=== PATIENT | female | born 1955 | race Caucasian/White ===

== ENCOUNTER → 2023-03-16 | Outpatient (CLI) | payer MEDICARE, OTHER ==
--- NOTE | 2023-03-16 16:33 | BD ---
EXAMINATION TYPE: Axial Bone Density DATE OF EXAM: 03/16/2023 CLINICAL HISTORY: 67 years old Female. ICD-10 CODE: Z13.820 SCREENING FOR OSTEOPOROSIS Height: 5 ft 3 in Weight: 199 FRAX RISK QUESTIONS: Alcohol (3 or more units per day): no Family History (Parent hip fracture): no Glucocorticoids (More than 3mos): unsure (Ex: prednisone, prednisolone, methylprednisolone, dexamethasone, and hydrocortisone). History of Fracture in Adulthood: yes Secondary Osteoporosis: 1. Type 1 Diabetes: no 2. Hyperthyroidism: no 3. Menopause before 45: yes 4. Malnutrition: no 5. Chronic liver disease: no Rheumatoid Arthritis: no Current Tobacco Use: former RISK FACTORS HISTORY OF: History of Wrist Fracture: rt wrist When: 7-8 years ago Surgery to Spine/Hip(right/left)/Wrist (right/left): rt wrist When: 7-8 years Family History of Osteoporosis: no Active: no Diet low in dairy products/other sources of calcium: no Postmenopausal woman: yes Take estrogen and/or progesterone medications: none now Lost more than 2 inches in height since high school: yes Frequent falls: no Poor Health: fair Hyperparathyroidism: no Adrenal Insufficiency: no MEDICATIONS: Additional Medications: arthritis meds,, inhaler , albuterol, trelegy ellipta, montelukast, laratadi ne, metoprolol, alendronate sodium, Atorvastatin, Additional History: copd and emphysemas on o2 24 seven EXAM MEASUREMENTS: Bone mineral densitometry was performed using the [employer] System. Bone mineral density as measured about the Lumbar spine is: ----- L1-L4(G/cm2): 1.057 T Score Values are as follows: ----- L1: -1.3 ----- L2: -0.7 ----- L3: -0.4 ----- L4: -1.7 ----- L1-L4: -1.0 Z Score Values are as follows: ----- L1: -0.5 ----- L2: 0.1 ----- L3: 0.4 ----- L4: -0.9 ----- L1-L4: -0.2 baseline Bone mineral density about the R hip (g/cm2): 0.658 Bone mineral density about the L hip (g/cm2): 0.799 T Score values are as follows: -----R Neck: -2.7 -----L Neck: -1.7 -----R Total: -2.1 -----L Total: -0.9 Z Score values are as follows: -----R Neck: -1.7 -----L Neck: -0.7 -----R Total: -1.3 -----L Total: -0.2 baseline FRAX%s: The graph provided illustrates a 14.4% chance for a major osteoporotic fx and a 3.6 % chance for the hips probability for fx in 10 years time. IMPRESSION: Osteoporosis (T Score less than -2.5). There is increased fracture risk and therapy is usually indicated based on age. Re-Screen 1-2 years. NOTE: T-SCORE=SD OF THE YOUNG ADULT MEAN.
--- NOTE | 2023-03-17 17:24 | MM ---
Reason for Exam: Screening (asymptomatic). Last mammogram was performed 6 year(s) and 0 month(s) ago. Patient History: Menarche at age 13. First Full-Term at age 20. Hysterectomy at age 28. Postmenopausal. Estrogen, from age 28 until age 57. Risk Values: Brandy 5 year model risk: 1.5%. NCI Lifetime model risk: 5.2%. Prior Study Comparison: 01/31/2015 Bilateral Screening Mammogram, [facility]. 03/25/2017 Bilateral Screening Mammogram, [facility]. Tissue Density: There are scattered fibroglandular densities. Findings: Analyzed By CAD. Isodense to low density nodularity proximally 9:00 right breast has a reniform shape suggesting an intramammary lymph node. 6 month follow-up to reassess as priors are no longer available for comparison. No significant mass, suspicious microcalcification, or other discrete abnormality is seen. Overall Assessment: Probably benign, BI-RAD 3 Management: Diagnostic Mammogram of the right breast in 6 months. For suspected 9:00 intramammary lymph node. Patient should continue monthly self-breast exams. A clinical breast exam by your physician is recommended on an annual basis. This exam should not preclude additional follow-up of suspicious palpable abnormalities. Note on Brandy scores and lifetime risk: 1. A Brandy score greater than 3% is considered moderate risk. If this is the case, consider specialist referral to assess eligibility for a risk reducing agent. 2. If overall lifetime risk for the development of breast cancer is 20% or higher, the patient may qualify for future screening with alternating mammogram and breast MRI. Electronically signed and approved by: Amirah Lizarraga M.D. Radiologist
== END | disposition home or self-care (01) ==
LOC: RADMAMWWP 15:03
PROVIDERS: ATTEND Family Medicine
DX: Z12.31 Encounter for screening mammogram for malignant neoplasm of breast (principal); Z13.820 Encounter for screening for osteoporosis; M81.0 Age-related osteoporosis without current pathological fracture; M85.89 Other specified disorders of bone density and structure, multiple sites; Z78.0 Asymptomatic menopausal state
CPT/HCPCS: 77063; 77067; 77080

== ENCOUNTER 2023-09-10 09:11 | Day surgery (SDC) | payer MEDICARE, OTHER ==
--- NOTE | 2023-09-10 07:48 | P.GSHP ---
History of Present Illness H&P Date: 09/10/23 CHIEF COMPLAINT: Colon screen HISTORY OF PRESENT ILLNESS: The patient is a 67-year-old female who presents for colon screen. Lower endoscopy was offered for further evaluation and management. PAST MEDICAL HISTORY: Please see list. PAST SURGICAL HISTORY: Please see list. MEDICATIONS: Please see list. ALLERGIES: Please see list. SOCIAL HISTORY: No illicit drug use FAMILY HISTORY: No reports of Crohn disease or ulcerative colitis. REVIEW OF ORGAN SYSTEMS: CONSTITUTIONAL: No reports of fevers or chills. PHYSICAL EXAM: VITAL SIGNS: Stable GENERAL: Well-developed pleasant in no acute distress. HEENT: No scleral icterus. Extraocular movements grossly intact. Moist buccal mucosa. NECK: Supple without lymphadenopathy. CHEST: Unlabored respirations. Equal bilateral excursions. CARDIOVASCULAR: Regular rate and rhythm. Distal 2+ pulses. ABDOMEN: Soft, nontender, nondistended. MUSCULOSKELETAL: No clubbing, cyanosis, or edema. ASSESSMENT: 1. Colon screen. PLAN: 1. Recommend proceeding with a lower endoscopy Past Medical History Past Medical History: COPD, Hyperlipidemia, Hypertension, Liver Disease Additional Past Medical History / Comment(s): osteoperosis, fatty liver, one kidney smaller than other History of Any Multi-Drug Resistant Organisms: None Reported Past Surgical History: Appendectomy, Cholecystectomy, Hysterectomy, Joint Replacement, Orthopedic Surgery Additional Past Surgical History / Comment(s): 7 surgeries on rt knee 2 were replacements , rt wrtist fx repair, Past Anesthesia/Blood Transfusion Reactions: Previous Problems w/ Anesthesia Additional Past Anesthesia/Blood Transfusion Reaction / Comment(s): pt states she " on the table from anesthestic drops" has been told this med is not used anymore Smoking Status: Former smoker Medications and Allergies Home Medications Medication Instructions Recorded Confirmed Type Alendronate Sodium 70 mg PO FR 09/08/23 09/08/23 History Aspirin [Adult Low Dose Aspirin EC] 81 mg PO DAILY 09/08/23 09/08/23 History Atorvastatin [Lipitor] 80 mg PO HS 09/08/23 09/08/23 History Cetirizine HCl [Zyrtec] 10 mg PO DAILY 09/08/23 09/08/23 History Fluticasone/Umeclidin/Vilanter 1 dose INHALATION DIRECTED 09/08/23 09/08/23 History [Trelegy Ellipta 200-62.5-25] Metoprolol Tartrate .5 mg PO BID 09/08/23 09/08/23 History Montelukast [Singulair] 10 mg PO DAILY 09/08/23 09/08/23 History Multivitamins, Thera [Multivitamin 1 tab PO DAILY 09/08/23 09/08/23 History (formulary)]
[2023-09-10] MEDS ORDERED: LACTATED RINGERS 1,000 ML IV ONE ×2 (09:30)
[2023-09-10] MEDS ORDERED: LIDOCAINE 1% INJ 10MG/ML (20 ML MDV) ONE (10:00)
[2023-09-10] MEDS ORDERED: PROPOFOL 10 MG/ML 20 ML VIAL IV ONE (10:00)
[2023-09-10 10:13] VITALS: TEMP 97.5
[2023-09-10] MEDS ORDERED: LACTATED RINGERS 1,000 ML IV SCH (10:28)
--- NOTE | 2023-09-10 10:55 | P.PCN ---
Date of Procedure: 09/10/23 Description of Procedure: PREOPERATIVE DIAGNOSIS: Positive Cologuard Abnormal stool study Colonoscopy screening POSTOPERATIVE DIAGNOSIS: Tubular adenoma transverse colon Sigmoid diverticulosis Internal hemorrhoids, grade 2 OPERATION: Colonoscopy to the ileocecal valve and appendiceal orifice, cecum Colonoscopy with cold forceps biopsy SURGEON: Carrie Morales MD. ANESTHESIA: MAC. INDICATIONS: The patient is an 67-year-old male who presents after abnormal stool study. Benefits and risks were described and informed consent was obtained. DESCRIPTION OF PROCEDURE: The patient had undergone Sutab prep. The patient had been brought into the operating room and laid in the left lateral decubitus position. After adequate intravenous sedation, the rectum was examined with 2% lidocaine jelly. External hemorrhoids were encountered. The rectal tone was within normal limits. No lesions were palpated in the rectal vault. An Olympus colonoscope was advanced until the cecum, ileocecal valve and appendiceal orifice were clearly viewed. The prep was excellent. Sigmoid diverticulosis was encountered. Colonic polyps were found and removed. No evidence of focal colitis was found. Retroflexion of the scope demonstrated grade 2 internal hemorrhoids without active bleeding or inflammation. The colon was desufflated. The patient had tolerated the procedure well. Withdrawal time was over 6 minutes. FINDINGS: Aronchick preparation quality scale 1 (1-5) Internal hemorrhoids, grade 3 with recent inflammation and bleeding External hemorrhoids, grade 4. No arteriovenous malformations. Sigmoid diverticulosis Removal of 4 polyps: - Cold forceps biopsy at mid transverse colon 4, 3 to 6 mm adenomas No focal colitis. RECOMMENDATIONS: Given severity of tubular adenomas, recommend repeat colonoscopy 3 years, 2025 Plan - Discharge Summary Discharge Rx Participant: No New Discharge Prescriptions: Continue Metoprolol Tartrate 12.5 mg PO BID Atorvastatin [Lipitor] 80 mg PO HS Alendronate Sodium 70 mg PO FR Montelukast [Singulair] 10 mg PO DAILY Aspirin [Adult Low Dose Aspirin EC] 81 mg PO DAILY Cetirizine HCl [Zyrtec] 10 mg PO DAILY Multivitamins, Thera [Multivitamin (formulary)] 1 tab PO DAILY Fluticasone/Umeclidin/Vilanter [Trelegy Ellipta 200-62.5-25] 1 dose INHALATION DIRECTED Discharge Medication List Alendronate Sodium 70 mg PO FR 09/08/23 [History] Aspirin [Adult Low Dose Aspirin EC] 81 mg PO DAILY 09/08/23 [History] Atorvastatin [Lipitor] 80 mg PO HS 09/08/23 [History] Cetirizine HCl [Zyrtec] 10 mg PO DAILY 09/08/23 [History] Fluticasone/Umeclidin/Vilanter [Trelegy Ellipta 200-62.5-25] 1 dose INHALATION DIRECTED 09/08/23 [History] Metoprolol Tartrate 12.5 mg PO BID 09/08/23 [History] Montelukast [Singulair] 10 mg PO DAILY 09/08/23 [History] Multivitamins, Thera [Multivitamin (formulary)] 1 tab PO DAILY 09/08/23 [History] Follow up Appointment(s)/Referral(s): Carrie Morales MD [STAFF PHYSICIAN] - As Needed Patient Instructions/Handouts: *Surgery [facility] - (Anesthesia) Discharge Instructions Outpatient Surgery, Diverticulosis (GEN), Colorectal Polyps (GEN), Diverticulosis Diet (GEN) Activity/Diet/Wound Care/Special Instructions: Repeat colonoscopy 3 years, 2025 Discharge Disposition: HOME SELF-CARE
[2023-09-10 11:02] VITALS: BP 128/76; PULSE 51; RESP 20
== END 2023-09-10 11:25 | disposition home or self-care (01) ==
LOC: ORWHC2ENDO 09:11
PROVIDERS: ATTEND Surgery Plastic and Reconstructive Surgery
DX: Z12.11 Encounter for screening for malignant neoplasm of colon (principal); K57.30 Diverticulosis of large intestine without perforation or abscess without bleeding; K64.2 Third degree hemorrhoids; K64.4 Residual hemorrhoidal skin tags; D12.3 Benign neoplasm of transverse colon; E78.5 Hyperlipidemia, unspecified; I10 Essential (primary) hypertension; J44.9 Chronic obstructive pulmonary disease, unspecified; K76.0 Fatty (change of) liver, not elsewhere classified; Z79.82 Long term (current) use of aspirin; Z87.891 Personal history of nicotine dependence; Z90.49 Acquired absence of other specified parts of digestive tract; Z79.51 Long term (current) use of inhaled steroids; Z79.899 Other long term (current) drug therapy
CPT/HCPCS: 88305; 45380; J2001; J2704

== ENCOUNTER → 2023-09-10 | Outpatient (CLI) | payer MEDICARE, OTHER ==
--- NOTE | 2023-09-10 15:10 | MM ---
Reason for Exam: Follow-up at short interval from prior study. Last screening mammogram was performed 6 month(s) ago. Patient History: Menarche at age 13. First Full-Term at age 20. Left ovary removed at age 28. Right ovary removed at age 28. Hysterectomy at age 28. Postmenopausal. Estrogen, from age 28 until age 57. Risk Values: Brandy 5 year model risk: 1.5%. NCI Lifetime model risk: 5.2%. Prior Study Comparison: 01/31/2015 Bilateral Screening Mammogram, [facility]. 03/25/2017 Bilateral Screening Mammogram, [facility]. 03/16/2023 Bilateral MG 3D screening mammo w/cad, [facility]. Tissue Density: Right: The breast tissue is almost entirely fat. Findings: Analyzed By CAD. Persistent nodular density upper outer right breast ultrasound is recommended. Stable benign calcifications. Overall Assessment: Incomplete: need additional imaging evaluation, BI-RAD 0 Management: Diagnostic Breast Ultrasound of the right breast. . Results were given to the patient verbally at the time of exam. Patient should continue monthly self-breast exams. A clinical breast exam by your physician is recommended on an annual basis. This exam should not preclude additional follow-up of suspicious palpable abnormalities. Note on Brandy scores and lifetime risk: 1. A Brandy score greater than 3% is considered moderate risk. If this is the case, consider specialist referral to assess eligibility for a risk reducing agent. 2. If overall lifetime risk for the development of breast cancer is 20% or higher, the patient may qualify for future screening with alternating mammogram and breast MRI. Electronically signed and approved by: Dominik Perera M.D. Radiologis
--- NOTE | 2023-09-11 13:06 | USB ---
Reason for Exam: Additional evaluation requested from prior study. Patient History: Menarche at age 13. First Full-Term at age 20. Left ovary removed at age 28. Right ovary removed at age 28. Hysterectomy at age 28. Postmenopausal. Estrogen, from age 28 until age 57. Risk Values: Brandy 5 year model risk: 1.5%. NCI Lifetime model risk: 5.2%. Technique: Method: Targeted. Prior Study Comparison: 01/31/2015 Bilateral Screening Mammogram, [facility]. 03/25/2017 Bilateral Screening Mammogram, [facility]. 03/16/2023 Bilateral MG 3D screening mammo w/cad, [facility]. Findings: The upper outer quadrant of the right breast, the axilla of the right breast and the retroareolar of the right breast were scanned. 2 adjacent cysts are noted right 9:00 position 6 cm from the nipple measuring 8 mm and 3 mm respectively. Overall Assessment: Benign, BI-RAD 2 Management: Return to routine follow-up (next follow-up: 03/16/2024 for Screening Mammogram) A clinical breast exam by your physician is recommended on an annual basis and results should be correlated with mammographic findings. This exam should not preclude additional follow-up of suspicious palpable abnormalities. Results were given to the patient verbally at the time of exam. Electronically signed and approved by: Dominik Perera M.D. Radiologis
== END | disposition home or self-care (01) ==
LOC: RADMAMWWP 12:53
PROVIDERS: ATTEND Family Medicine
DX: R92.311 Mammographic fatty tissue density, right breast (principal); Z78.0 Asymptomatic menopausal state
CPT/HCPCS: 77065; 76642; G0279; 77061

== ENCOUNTER → 2023-11-18 | Outpatient (CLI) | payer MEDICARE, OTHER ==
--- NOTE | 2023-11-18 20:28 | US ---
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 FINDINGS: EXAM MEASUREMENTS: Liver Length: 18.6 cm Gallbladder: Surgically absent CBD: 0.8 cm Right Kidney: 5.7 x 3.2 x 3.9 cm COMPUTED TOMOGRAPHY TECHNICIAN NOTES: patient is on O2 and had to sit upright for exam Pancreas: not seen due to bowel gas Liver: difficult to penetrate, slightly enlarged Gallbladder: Surgically absent Evidence for sonographic Gilbert's sign: no CBD: Mildly dilated. 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 Mild hepatomegaly at 18.6 cm with moderate to severe hepatic steatosis. 2. Gallbladder surgically absent. 3. Mildly dilated bile duct at 8 mm may be due to chronic postcholecystectomy status. 4. Atrophic right kidney. 5. Incidental right pleural effusion.
== END | disposition home or self-care (01) ==
LOC: RADUSWWP 09:07
PROVIDERS: ATTEND Internal Medicine
DX: K83.8 Other specified diseases of biliary tract (principal); K76.0 Fatty (change of) liver, not elsewhere classified; N26.1 Atrophy of kidney (terminal); R16.0 Hepatomegaly, not elsewhere classified; Z90.49 Acquired absence of other specified parts of digestive tract
CPT/HCPCS: 76705

== ENCOUNTER → 2024-01-12 | Outpatient (CLI) | payer MEDICARE, OTHER ==
--- NOTE | 2024-01-12 14:11 | XR ---
EXAMINATION TYPE: XR shoulder complete BILAT DATE OF EXAM: 01/12/2024 COMPARISON: NONE HISTORY: Chronic pain TECHNIQUE: Three views of each shoulder are submitted. FINDINGS: Right shoulder: Mild AC joint arthropathy. Mild glenohumeral joint arthropathy. There is a area of so mewhat irregular density in the right upper lobe. Mineralization normal. No acute fracture or dislocation. Left shoulder: Mild AC joint arthropathy. Lateral humeral joint maintained. Underlying emphysematous changes in the lungs. No acute fracture or dislocation. IMPRESSION: 1. Mild bilateral AC joint arthropathy. No acute fracture. 2. Irregular density right upper lobe recommend follow-up chest x-ray.
== END | disposition home or self-care (01) ==
LOC: RADXRMAIN 13:22
PROVIDERS: ATTEND Internal Medicine
DX: M19.012 Primary osteoarthritis, left shoulder (principal); M19.011 Primary osteoarthritis, right shoulder; J98.4 Other disorders of lung

== ENCOUNTER 2024-08-15 10:27 | Emergency (ER) | payer MEDICARE, OTHER ==
--- NOTE | 2024-08-15 11:49 | ED ---
Extremity Problem HPI - General Source: patient, family, RN notes reviewed Mode of arrival: wheelchair Limitations: no limitations <Silvina Powers - Last Filed: 08/15/24 15:16> <Tu Sarabia - Last Filed: 08/15/24 16:58> - General Chief complaint: Extremity Problem,Nontraumatic Stated complaint: poss infection-knee Time Seen by Provider: 08/15/24 10:40 - History of Present Illness Initial comments: This is a 68-year-old female with a history of gout and COPD on oxygen presenting to the emergency department with referral from her primary care provider with concern for right knee infection. Patient states that over the past approximately month she has been experiencing pain of the right knee. Patient was evaluated outpatient emergency department in the end of July where she was given steroids for presumed gout infection. Patient states that over the past week she has noticed erythema and worsening edema of the right knee and tenderness to palpation and range of motion. She has had multiple surgeries of the right knee with 2 department placements and most recent being in 2012. She denies nausea, vomiting, fevers, chills. (Silvina Powers) - Related Data Home Medications Medication Instructions Recorded Confirmed Alendronate Sodium 70 mg PO FR 09/08/23 08/15/24 Aspirin [Adult Low Dose Aspirin EC] 81 mg PO DAILY 09/08/23 08/15/24 Atorvastatin [Lipitor] 40 mg PO DAILY 09/08/23 08/15/24 Fluticasone/Umeclidin/Vilanter 1 puff INHALATION RT-DAILY 09/08/23 08/15/24 [Trelecesilia Ellipta 200-62.5-25] Montelukast [Singulair] 10 mg PO DAILY 09/08/23 08/15/24 Multivitamins, Thera [Multivitamin 1 tab PO DAILY 09/08/23 08/15/24 (formulary)] Acetaminophen [Tylenol Arthritis] 650 mg PO BID 08/15/24 08/15/24 Albuterol Inhaler [Ventolin Hfa 2 puff INHALATION RT-Q6H PRN 08/15/24 08/15/24 Inhaler] Calcium Carbonate [Calcium] 1,200 mg PO DAILY 08/15/24 08/15/24 Cholecalciferol (Vitamin D3) 50 mcg PO VÁSQUEZ 08/15/24 08/15/24 [Vitamin D3 (50 Mcg = 2000 Iu)] Fluticasone Nasal [place] [Flonase 1 spray EA NOSTRIL DAILY 08/15/24 08/15/24 Nasal [place]] Immuneplus Supplement 2 tab PO DAILY 08/15/24 08/15/24 Ipratropium-Albuterol Nebulize 3 ml INHALATION RT-TID 08/15/24 08/15/24 [Duoneb 0.5 mg-3 mg/3 ml Soln] Loratadine 10 mg PO DAILY 08/15/24 08/15/24 Melatonin 20 mg PO HS 08/15/24 08/15/24 Pantoprazole [Protonix] 40 mg PO DAILY 08/15/24 08/15/24 allopurinoL [Zyloprim] 100 mg PO DAILY 08/15/24 08/15/24 oxyBUTYnin chloride [oxyBUTYnin 5 mg PO DAILY 08/15/24 08/15/24 chloride ER] Allergies Allergy/AdvReac Type Severity Reaction Status Date / Time succinylcholine Allergy Anaphylaxis Verified 08/15/24 13:47 [From Anectine] ANESTHETIC Allergy Unknown Uncoded 09/10/23 09:34 Review of Systems ROS Other: All systems not noted in ROS Statement are negative. <Silvina Powers - Last Filed: 08/15/24 15:16> ROS Other: All systems not noted in ROS Statement are negative. <Tu Sarabia - Last Filed: 08/15/24 16:58> ROS Statement: Those systems with pertinent positive or pertinent negative responses have been documented in the HPI. Past Medical History Past Medical History: COPD, Osteoarthritis (OA), Renal Disease, Rheumatoid Arthritis (RA) Past Surgical History: Appendectomy, Cholecystectomy, Hysterectomy, Orthopedic Surgery Smoking Status: Former smoker <Silvina Powers - Last Filed: 08/15/24 15:16> General Exam Limitations: no limitations General appearance: alert, in no apparent distress ENT exam: Present: normal exam, mucous membranes moist Neck exam: Present: normal inspection. Absent: tenderness, meningismus, lymphadenopathy Respiratory exam: Present: normal lung sounds bilaterally, wheezes. Absent: respiratory distress, rales, rhonchi, stridor Cardiovascular Exam: Present: regular rate, normal rhythm, normal heart sounds. Absent: systolic murmur, diastolic murmur, rubs, gallop, clicks Right Knee exam: Present: tenderness, swelling, erythema, effusion. Absent: full ROM Neurovascular tendon exam: Present: no vascular compromise. Absent: pulse deficit Gait: not tested/not observed Back exam: Present: normal inspection Skin exam: Present: warm, dry, intact, normal color. Absent: rash <Silvina Powers - Last Filed: 08/15/24 15:16> Course Vital Signs 08/15/24 08/15/24 08/15/24 10:57 11:56 15:00 Temperature 97.7 F 98.7 F Pulse Rate 95 80 87 Respiratory 20 18 20 Rate Blood Pressure 127/83 131/68 131/61 O2 Sat by Pulse 90 L 95 99 Oximetry 08/15/24 08/15/24 15:50 16:00 Temperature Pulse Rate 86 91 Respiratory Rate Blood Pressure O2 Sat by Pulse Oximetry Medical Decision Making - Lab Data Result diagrams: 08/15/24 12:06 08/15/24 12:06 <Silvina Powers - Last Filed: 08/15/24 15:16> - Lab Data Result diagrams: 08/15/24 12:06 08/15/24 12:06 <Tu Sarabia - Last Filed: 08/15/24 16:58> - Medical Decision Making Was pt. sent in by a medical professional or institution (GLORIA Covarrubias, [employer], urgent care, hospital, or detention...) When possible be specific @ -Patient is advised by primary care provider to report to the emergency department for further evaluation for concern for infection of the right knee. Did you speak to anyone other than the patient for history (EMS, parent, family, police, friend...)? What history was obtained from this source @ -No Did you review nursing and triage notes (agree or disagree)? Why? @ -I reviewed and agree with nursing and triage notes Were old charts reviewed (outside hosp., previous admission, EMS record, old EKG, old radiological studies, urgent care reports/EKG's, detention records)? Report findings @ -No old charts were reviewed Differential Diagnosis (chest pain, altered mental status, abdominal pain women, abdominal pain men, vaginal bleeding, weakness, fever, dyspnea, syncope, headache, dizziness, GI bleed, back pain, seizure, CVA, palpatations, mental health, musculoskeletal)? @ -Differential Musculoskeletal Muscular strain, contusion, ligament sprain, fracture, arthritis, septic arthritis, bursitis, cellulitis, muscle spasm, nerve compression, DVT, arterial occlusion, herpes zoster, electrolyte abnormality, tumor.... This is not meant to be in all inclusive list EKG interpreted by me (3pts min.). @ -none X-rays interpreted by me (1pt min.). @ -X-ray of the right knee unremarkable for acute abnormality. CT interpreted by me (1pt min.). @ -None done U/S interpreted by me (1pt. min.). @ -None done What testing was considered but not performed or refused? (CT, X-rays, U/S, labs)? Why? @ -None What meds were considered but not given or refused? Why? @ -None Did you discuss the management of the patient with other professionals (professionals i.e. , PA, S[employer]PARER, lab, RT, psych nurse, social media analyst, pressurised container filler, teacher, access control officer, showcase maker)? Give summary @ -Spoke with internal medicine physician with [facility], Dr. Quezada, in [facility] to laboratory and imaging. Patient is accepted for admission with orthopedics on consult. Was smoking cessation discussed for >3mins.? @ -No Was critical care preformed (if so, how long)? @ -No Were there social determinants of health that impacted care today? How? (Homelessness, low income, unemployed, alcoholism, drug addiction, transportation, low edu. Level, literacy, decrease access to med. care, shelter, r ehab)? @ -No Was there de-escalation of care discussed even if they declined (Discuss DNR or withdrawal of care, Hospice)? DNR status @ -No What co-morbidities impacted this encounter? (DM, HTN, Smoking, COPD, CAD, Cancer, CVA, ARF, Chemo, Hep., AIDS, mental health diagnosis, sleep apnea, morbid obesity)? @ -None Was patient admitted / discharged? Hospital course, mention meds given and route, prescriptions, significant lab abnormalities, going to OR and other pertinent info. @ -Admitted. 68-year-old female with right knee pain. On evaluation patient's right knee is noted to be erythematous, erythematous and tender to palpation. Patient's pedal pulses intact. Mild pain to palpation of the posterior knee. Patient is provided with pain medication pending laboratory results and x-ray. She is and agree with this plan. X-ray unremarkable. Labs remarkable for leukocytosis of 12.1, neutrophils 9.0. Patient will be admitted to internal medicine with orthopedics on consult for further evaluation of right knee pain to rule out further infection. Blood cultures are ordered and patient is started on Rocephin. Discussed with Dr. Sarabia Undiagnosed new problem with uncertain prognosis? @ -No Drug Therapy requiring intensive monitoring for toxicity (Heparin, Nitro, Insulin, Cardizem)? @ -No Were any procedures done? @ -No Diagnosis/symptom? @ -Knee pain, cellulitis, rule out septic arthritis Acute, or Chronic, or Acute on Chronic? @ -Acute Uncomplicated (without systemic symptoms) or Complicated (systemic symptoms)? @ -Complicated Side effects of treatment? @ -No Exacerbation, Progression, or Severe Exacerbation? @ -No Poses a threat to life or bodily function? How? (Chest pain, USA, ID, pneumonia, PE, COPD, DKA, ARF, appy, cholecystitis, CVA, Diverticulitis, Homicidal, Suicidal, threat to staff... and all critical care pts) @ -No (Priya,Silvina) Patient was seen by orthopedics with concerns for transfer where she had her pr ocedure done. Patient did have procedure done at [facility] September 2013 however does not recall who her surgeon was.. Patient was reevaluated by myself twice. Patient does have diffuse knee discomfort with anterior cellulitic changes. Patient does have definitive cellulitis and there is concern for potential septic joint. Case was discussed with Jacob with transfer team who did speak with Dr. Morin. Case was also discussed with Dr. Abad who will accept transfer. (Tu Sarabia) - Lab Data Lab Results 08/15/24 08/15/24 08/15/24 Range/Units 12:06 12:06 12:06 WBC 12.1 H (3.8-10.6) k/uL RBC 4.65 (3.80-5.40) m/uL Hgb 13.8 (11.4-16.0) gm/dL Hct 42.4 (34.0-46.0) % MCV 91.4 (80.0-100.0) fL MCH 29.8 (25.0-35.0) pg MCHC 32.6 (31.0-37.0) g/dL RDW 15.1 (11.5-15.5) % Plt Count 252 (150-450) k/uL MPV 7.5 Neutrophils % 74 % Lymphocytes % 16 % Monocytes % 6 % Eosinophils % 2 % Basophils % 0 % Neutrophils # 9.0 H (1.3-7.7) k/uL Lymphocytes # 1.9 (1.0-4.8) k/uL Monocytes # 0.8 (0-1.0) k/uL Eosinophils # 0.3 (0-0.7) k/uL Basophils # 0.0 (0-0.2) k/uL Sodium 140 (137-145) mmol/L Potassium 4.2 (3.5-5.1) mmol/L Chloride 105 (98-107) mmol/L Carbon Dioxide 29 (22-30) mmol/L Anion Gap 6 mmol/L BUN 15 (7-17) mg/dL Creatinine 1.00 (0.52-1.04) mg/dL Est GFR (CKD-EPI)AfAm 67 (>60 ml/min/1.73 sqM) Est GFR (CKD-EPI)NonAf 58 (>60 ml/min/1.73 sqM) Glucose 131 H (74-99) mg/dL Plasma Lactic Acid Jay 1.1 (0.7-2.0) mmol/L Uric Acid (3.7-7.4) mg/dL Calcium 8.9 (8.4-10.2) mg/dL Total Bilirubin 1.4 H (0.2-1.3) mg/dL AST 37 H (14-36) U/L ALT 33 (4-34) U/L Alkaline Phosphatase 111 (38-126) U/L C-Reactive Protein 17.30 H (0.00-0.80) mg/dL Total Protein 7.0 (6.3-8.2) g/dL Albumin 3.7 (3.5-5.0) g/dL 08/15/24 Range/Units 15:37 WBC (3.8-10.6) k/uL RBC (3.80-5.40) m/uL Hgb (11.4-16.0) gm/dL Hct (34.0-46.0) % MCV (80.0-100.0) fL MCH (25.0-35.0) pg MCHC (31.0-37.0) g/dL RDW (11.5-15.5) % Plt Count (150-450) k/uL MPV Neutrophils % % Lymphocytes % % Monocytes % % Eosinophils % % Basophils % % Neutrophils # (1.3-7.7) k/uL Lymphocytes # (1.0-4.8) k/uL Monocytes # (0-1.0) k/uL Eosinophils # (0-0.7) k/uL Basophils # (0-0.2) k/uL Sodium (137-145) mmol/L Potassium (3.5-5.1) mmol/L Chloride (98-107) mmol/L Carbon Dioxide (22-30) mmol/L Anion Gap mmol/L BUN (7-17) mg/dL Creatinine (0.52-1.04) mg/dL Est GFR (CKD-EPI)AfAm (>60 ml/min/1.73 sqM) Est GFR (CKD-EPI)NonAf (>60 ml/min/1.73 sqM) Glucose (74-99) mg/dL Plasma Lactic Acid Jay (0.7-2.0) mmol/L Uric Acid 6.6 (3.7-7.4) mg/dL Calcium (8.4-10.2) mg/dL Total Bilirubin (0.2-1.3) mg/dL AST (14-36) U/L ALT (4-34) U/L Alkaline Phosphatase (38-126) U/L C-Reactive Protein (0.00-0.80) mg/dL Total Protein (6.3-8.2) g/dL Albumin (3.5-5.0) g/dL Disposition Decision to Admit Reason: Admit from EC Decision Date: 08/15/24 Decision Time: 13:54 <Silvina Powers - Last Filed: 08/15/24 15:16> Is patient prescribed a controlled substance at d/c from ED?: No - Out of Hospital Transfer - Req. Specs Out of Hospital Transfer - Requested Specifics: Other Emergency Center <Tu Saraiba - Last Filed: 08/15/24 16:58> Clinical Impression: Cellulitis Disposition: OTHER INSTITUTION NOT DEFINED Condition: Stable Referrals: Jarocho Lizarraga MD [Primary Care Provider] - 1-2 days
[2024-08-15] MEDS: HYDROmorphone 1 MG/ML 1 ML SYRINGE IVP STA (12:08)
[2024-08-15 12:21] LABS: Basophils % (A) 0 %; Eosinophils # (A) 0.3 k/uL (0-0.7); Eosinophils % (A) 2 %; HCT 42.4 % (34.0-46.0); HGB 13.8 gm/dL (11.4-16.0); Lymphocytes # (A) 1.9 k/uL (1.0-4.8); Lymphocytes % (A) 16 %; MCH 29.8 pg (25.0-35.0); MCHC 32.6 g/dL (31.0-37.0); MCV 91.4 fL (80.0-100.0); Mean Platelet Volume 7.5; Monocytes # (A) 0.8 k/uL (0-1.0); Monocytes % (A) 6 %; Neutrophils % (A) 74 %; Platelet Count 252 k/uL (150-450); RBC 4.65 m/uL (3.80-5.40); RDW 15.1 % (11.5-15.5); WBC 12.1 k/uL (3.8-10.6)
[2024-08-15 12:34] LABS: ALT 33 U/L (4-34); AST 37 U/L (14-36); African American GFR (CKD) 67 (>60 ml/min/1.73 sqM); Albumin 3.7 g/dL (3.5-5.0); Alkaline Phosphatase 111 U/L (38-126); Anion Gap 6 mmol/L; Blood Urea Nitrogen 15 mg/dL (7-17); Calcium 8.9 mg/dL (8.4-10.2); Carbon Dioxide 29 mmol/L (22-30); Chloride 105 mmol/L (98-107); Glucose 131 mg/dL (74-99); Non-African American GFR(CKD) 58 (>60 ml/min/1.73 sqM); Potassium 4.2 mmol/L (3.5-5.1); Sodium 140 mmol/L (137-145); Total Bilirubin 1.4 mg/dL (0.2-1.3)
--- NOTE | 2024-08-15 12:38 | XR ---
EXAMINATION TYPE: XR knee complete RT DATE OF EXAM: 08/15/2024 12:27 PM COMPARISON: None. CLINICAL INDICATION: Female, 68 years old with history of erythema, swelling, pain, TECHNIQUE: XR knee complete RT view(s) obtained. FINDINGS: Tibial and femoral components are present. There is some calcification medial to the femoral prosthes is. No joint effusion is evident. IMPRESSION: 1. No acute osseous abnormality. [facility], , 08/15/2024 12:35 PM
[2024-08-15] MEDS ORDERED: ACETAMINOPHEN TAB 325 MG TAB PO PRN (13:54)
[2024-08-15] MEDS ORDERED: IBUPROFEN 400 MG TAB PO PRN (13:54)
[2024-08-15] MEDS ORDERED: NALOXONE 0.4 MG/ML 1 ML VIAL IV PRN (13:54)
[2024-08-15 15:03] VITALS: BP 131/61; RESP 20; TEMP 98.7
[2024-08-15] MEDS ORDERED: ALBUTEROL HFA INHALER INHALATION PRN (15:22)
[2024-08-15] MEDS ORDERED: HYDROcodone/APAP 5-325MG 1 EACH TAB PO PRN (15:23)
[2024-08-15] MEDS: IPRATROPIUM-ALBUTEROL 3 ML NEB INHALATION SCH (15:50)
[2024-08-15] MEDS: cefTRIAXone IN SWFI 1,000 MG/10 ML SYRINGE IVP ONE (15:50)
[2024-08-15] MEDS: HYDROmorphone 0.5 MG/0.5 ML SYRINGE IVP PRN (15:55)
[2024-08-15 16:00] VITALS: PULSE 91
--- NOTE | 2024-08-15 16:12 | P.CNOR ---
History of Present Illness - [facility] Consult date: 08/15/24 Consult reason: joint pain (Right knee pain, possible periprosthetic infection) History of present illness: Patient is a 68-year-old female who presented to [facility] today with regards to severe pain, redness, swelling to her right knee. Apparently this patient has been dealing with the symptoms over the last 3 to 4 weeks. She is from the [facility]. She has been seen at a urgent care/hospital setting, they mentioned the possibility of gout at that time. Patient was then told to follow-up with her primary care doctor which she did today, and they recommended immediate follow-up at a bigger hospital for evaluation. Patient was evaluated in the emergency room today, she had family present at bedside. Patient seems to be very uncomfortable with regards to the pain in the right knee. She states that she has had multiple surgeries to that right knee, most recent what have been the original total knee arthroplasty that was done in [place] in 2010, she then developed a periprosthetic fracture involving the femoral component. She then underwent a big revision surgery at [facility] in 2012. Patient cannot remember the operating surgeon at this time. Patient states that her range of motion is normally not very good with regards to the knee, she has a cane/walker she does use on occasion. She had very minimal discomfort in the knee prior to about a month ago. She denies any recent trauma, this to include falls. She states that over the last 3 weeks the pain, redness and swelling has been getting worse. Review of Systems Constitutional: Reports as per [facility] Past Medical History Past Medical History: COPD, Osteoarthritis (OA), Renal Disease, Rheumatoid Arthritis (RA) Past Surgical History: Appendectomy, Cholecystectomy, Hysterectomy, Orthopedic Surgery Smoking Status: Former smoker Medications and Allergies Home Medications Medication Instructions Recorded Confirmed Type Alendronate Sodium 70 mg PO FR 09/08/23 08/15/24 History Aspirin [Adult Low Dose Aspirin EC] 81 mg PO DAILY 09/08/23 08/15/24 History Atorvastatin [Lipitor] 40 mg PO DAILY 09/08/23 08/15/24 History Fluticasone/Umeclidin/Vilanter 1 puff INHALATION RT-DAILY 09/08/23 08/15/24 History [Trelegy Ellipta 200-62.5-25] Montelukast [Singulair] 10 mg PO DAILY 09/08/23 08/15/24 History Multivitamins, Thera [Multivitamin 1 tab PO DAILY 09/08/23 08/15/24 History (formulary)] Acetaminophen [Tylenol Arthritis] 650 mg PO BID 08/15/24 08/15/24 History Albuterol Inhaler [Ventolin Hfa 2 puff INHALATION RT-Q6H PRN 08/15/24 08/15/24 History Inhaler] Calcium Carbonate [Calcium] 1,200 mg PO DAILY 08/15/24 08/15/24 History Cholecalciferol (Vitamin D3) 50 mcg PO VÁSQUEZ 08/15/24 08/15/24 History [Vitamin D3 (50 Mcg = 2000 Iu)] Fluticasone Nasal [place] [Flonase 1 spray EA NOSTRIL DAILY 08/15/24 08/15/24 History Nasal [place]] Immuneplus Supplement 2 tab PO DAILY 08/15/24 08/15/24 History Ipratropium-Albuterol Nebulize 3 ml INHALATION RT-TID 08/15/24 08/15/24 History [Duoneb 0.5 mg-3 mg/3 ml Soln] Loratadine 10 mg PO DAILY 08/15/24 08/15/24 History Melatonin 20 mg PO HS 08/15/24 08/15/24 History Pantoprazole [Protonix] 40 mg PO DAILY 08/15/24 08/15/24 History allopurinoL [Zyloprim] 100 mg PO DAILY 08/15/24 08/15/24 History oxyBUTYnin chloride [oxyBUTYnin 5 mg PO DAILY 08/15/24 08/15/24 History chloride ER] Allergies Allergy/AdvReac Type Severity Reaction Status Date / Time succinylcholine Allergy Anaphylaxis Verified 08/15/24 13:47 [From Anectine] ANESTHETIC Allergy Unknown Uncoded 09/10/23 09:34 Physical Examination Right lower extremity: Multiple well-healed incisions over the anterior aspect of the right knee. There is severe erythema noted over the anterior, medial and lateral aspect of the knee. There is some mild fluctuance appreciated over the anterior aspect of the knee. Mild joint effusion also appreciated Significant pain with palpation noted to the medial lateral joint line along with the anterior aspect of the knee. Range of motion is limited to the knee based on her normal range of motion, this is also inhibited due to the amount of pain she has with flexion and extension Calf is soft, no tenderness with palpation Plantarflexion, dorsiflexion, EHL, FHL are intact Logroll maneuver reproduces no groin pain Dorsalis pedis pulses 2+ Results - Labs Labs: Abnormal Lab Results - Last 24 Hours (Table) 08/15/24 08/15/24 Range/Units 12:06 12:06 WBC 12.1 H (3.8-10.6) k/uL Neutrophils # 9.0 H (1.3-7.7) k/uL Glucose 131 H (74-99) mg/dL Total Bilirubin 1.4 H (0.2-1.3) mg/dL AST 37 H (14-36) U/L C-Reactive Protein 17.30 H (0.00-0.80) mg/dL H & H 08/15/24 Range/Units 12:06 Hgb 13.8 (11.4-16.0) gm/dL Hct 42.4 (34.0-46.0) % Result Diagrams: 08/15/24 12:06 08/15/24 12:06 - Diagnostic results Knee x-ray: report reviewed, image reviewed (Reports and images were reviewed of the right knee. No acute fractures or dislocations appreciated. Total knee arthroplasty components appear to be well fixated.) Assessment and Plan Assessment: Right knee pain Leukocytosis Evaded inflammatory markers Likely right knee periprosthetic infection History of multiple right knee surgeries, most recently a revision right total knee arthroplasty in 2012 Other medical comorbidities Plan: I was able to discuss the case, this to include physical exam findings and imaging studies and my attending Dr. Bar. Due to patient's physical exam findings, elevated white count, elevated CRP and likely elevated sed rate there is a high likelihood for periprosthetic joint infection involving her right knee. We are recommending immediate transfer to tertiary care facility for further workup and treatment. Advised transfer to [facility] due to her most recent right knee surgery being at that facility. I did discuss the case with both the nurse and the ER physician lead dental assistant taking care of the patient. They will notify internal medicine of our recommendations. I advised if there is any issues or questions to contact our orthopedic service. Time with Patient: Less than 30
[2024-08-15 19:37] LABS: Erythrocyte Sedimentation Rate 81 mm/Hr (0-30)
[2024-08-15] MEDS ORDERED: HEPARIN SODIUM,PORCINE 5,000 UNIT/ML 1 ML VIAL SQ SCH (21:00)
[2024-08-15] MEDS ORDERED: MELATONIN 5 MG TABLET PO SCH (21:00)
[2024-08-15] MEDS ORDERED: ACETAMINOPHEN TAB 325 MG TAB PO SCH (21:00)
--- NOTE | 2024-08-15 21:30 | HP ---
HISTORY AND PHYSICAL CHIEF COMPLAINT: Right knee pain. HISTORY OF PRESENT ILLNESS: This is a 68-year-old woman with a past medical history of multiple medical problems including COPD, history of gout, multiple knee surgeries on the right, she is complaining of knee pain. The patient came to [facility]. The patient had possibly septic arthritis at this time. There is no history of any fever, rigors, or chills. White count is 12.1. PAST MEDICAL HISTORY: COPD, gout. Rest of the history and rest of the chart is also reviewed. HOME MEDICATIONS: Reviewed include melatonin. Dose and rest of medications reviewed. ALLERGIES: Anesthetic. FAMILY HISTORY: No history of heart disease or strokes in the family. SOCIAL HISTORY: Previous history of smoking. REVIEW OF SYSTEMS: Fourteen-point review is negative except as mentioned earlier. PHYSICAL EXAMINATION: VITAL SIGNS: Pulse 87, blood pressure 130/64, respirations 20. HEENT: Conjunctivae normal. NECK: No JVD. CARDIOVASCULAR: S1, S2. RESPIRATIONS: Breath sounds diminished at the bases. Scattered rhonchi and crackles. ABDOMEN: Soft. LEGS: Significant pain and swelling and arthritis of the right knee. NERVOUS SYSTEM: Nonfocal. SKIN: As mentioned earlier. LABORATORY DATA: Reviewed. ASSESSMENT: 1. Acute right knee pain with possible septic arthritis. 2. Elevated WBC. 3. History of gout. 4. Chronic obstructive pulmonary disease. 5. History of rheumatoid arthritis. RECOMMENDATIONS AND DISCUSSION: This is a 68-year-old woman, who presented with multiple complex medical issues, we will monitor the patient closely. I would recommend broad-spectrum IV antibiotics. I would also recommend Infectious Disease and Orthopedic evaluations. Resume the home medications. We will check serum uric acid also, cultures. Further recommendations to follow. See orders for further details. Prognosis guarded. MMODL / IJN: [id number] /
--- NOTE | 2024-08-15 22:21 | P.CONS ---
History of Present Illness - Reason for Consult Consult date: 08/15/24 Right knee cellulitis Requesting physician: Nilton Bobby - Chief Complaint Right knee pain swelling and redness x weeks - History of Present Illness Patient is a 68-year-old female with a past medical history significant for COPD osteoarthritis rheumatoid arthritis in this patient who did have a multiple surgery on her right knee area last surgery was back in 2012 with the patient did have a knee replacement patient is presenting to the hospital for evaluation of increasing pain and swelling and redness to the right knee area patient symptom has been going on for a few weeks and previously has been evaluated in a different ER with the patient was diagnosed with the gout and has received a steroid injection and prednisone without any improvement apparently the patient was evaluated by PCP has been diagnosed with a cellulitis and was sent to the ER patient denies having any fever or any chills patient denies having any headache or URI symptoms no chest pain shortness of breath occasional cough no nausea vomiting no abdominal pain or diarrhea patient denies any history of any trauma to the right knee area or any fall has been complaining of diffuse swelling and redness to the right knee area pain is moderate intensity without any radiation did not have any open wound or any drainage on presentation to the hospital the patient was afebrile patient was not tachycardic hypotensive or hypoxic patient did have a white count of 12.1 creatinine is 1.0 electrolytes are normal liver isms are mildly elevated patient did have a x-ray of the knee no acute bony abnormality Review of Systems Positive point and negatives has been mentioned in the HPI, complete review of systems was performed and all other systems are negative Past Medical History Past Medical History: COPD, Osteoarthritis (OA), Renal Disease, Rheumatoid Arthritis (RA) Past Surgical History: Appendectomy, Cholecystectomy, Hysterectomy, Orthopedic Surgery Smoking Status: Former smoker Medications and Allergies Home Medications Medication Instructions Recorded Confirmed Type Alendronate Sodium 70 mg PO FR 09/08/23 08/15/24 History Aspirin [Adult Low Dose Aspirin EC] 81 mg PO DAILY 09/08/23 08/15/24 History Atorvastatin [Lipitor] 40 mg PO DAILY 09/08/23 08/15/24 History Fluticasone/Umeclidin/Vilanter 1 puff INHALATION RT-DAILY 09/08/23 08/15/24 History [Trelegy Ellipta 200-62.5-25] Montelukast [Singulair] 10 mg PO DAILY 09/08/23 08/15/24 History Multivitamins, Thera [Multivitamin 1 tab PO DAILY 09/08/23 08/15/24 History (formulary)] Acetaminophen [Tylenol Arthritis] 650 mg PO BID 08/15/24 08/15/24 History Albuterol Inhaler [Ventolin Hfa 2 puff INHALATION RT-Q6H PRN 08/15/24 08/15/24 History Inhaler] Calcium Carbonate [Calcium] 1,200 mg PO DAILY 08/15/24 08/15/24 History Cholecalciferol (Vitamin D3) 50 mcg PO VÁSQUEZ 08/15/24 08/15/24 History [Vitamin D3 (50 Mcg = 2000 Iu)] Fluticasone Nasal [place] [Flonase 1 spray EA NOSTRIL DAILY 08/15/24 08/15/24 History Nasal [place]] Immuneplus Supplement 2 tab PO DAILY 08/15/24 08/15/24 History Ipratropium-Albuterol Nebulize 3 ml INHALATION RT-TID 08/15/24 08/15/24 History [Duoneb 0.5 mg-3 mg/3 ml Soln] Loratadine 10 mg PO DAILY 08/15/24 08/15/24 History Melatonin 20 mg PO HS 08/15/24 08/15/24 History Pantoprazole [Protonix] 40 mg PO DAILY 08/15/24 08/15/24 History allopurinoL [Zyloprim] 100 mg PO DAILY 08/15/24 08/15/24 History oxyBUTYnin chloride [oxyBUTYnin 5 mg PO DAILY 08/15/24 08/15/24 History chloride ER] Allergies Allergy/AdvReac Type Severity Reaction Status Date / Time succinylcholine Allergy Anaphylaxis Verified 08/15/24 13:47 [From Anectine] ANESTHETIC Allergy Unknown Uncoded 09/10/23 09:34 Physical Exam Vitals: Vital Signs Temp Pulse Resp BP Pulse Ox 08/15/24 15:00 98.7 F 87 20 131/61 99 08/15/24 11:56 80 18 131/68 95 08/15/24 10:57 97.7 F 95 20 127/83 90 L Intake and Output 08/15/24 08/15/24 08/15/24 06:59 14:59 22:59 Other: Weight 93.44 kg GENERAL DESCRIPTION: Elderly female lying in bed, no distress. No tachypnea or accessory muscle of respiration use. HEENT: Shows Pallor , no scleral icterus. Oral mucous membrane is dry. No pharyngeal erythema or thrush NECK: Trachea central, no thyromegaly. LUNGS: Unlabored breathing. Clear to auscultation anteriorly. No wheeze or crackle. HEART: S1, S2, regular rate and rhythm. No loud murmur ABDOMEN: Soft, no tenderness , guarding or rigidity, no organomegaly EXTREMITIES: Right knee did have a diffuse swelling redness which is warm and tender to touch SKIN: No rash, no masses palpable. NEUROLOGICAL: The patient is awake, alert, oriented x3, mood and affect normal. Results CBC & Chem 7: 08/15/24 12:06 08/15/24 12:06 Labs: Abnormal Lab Results - Last 24 Hours (Table) 08/15/24 08/15/24 Range/Units 12:06 12:06 WBC 12.1 H (3.8-10.6) k/uL Neutrophils # 9.0 H (1.3-7.7) k/uL Glucose 131 H (74-99) mg/dL Total Bilirubin 1.4 H (0.2-1.3) mg/dL AST 37 H (14-36) U/L Assessment and Plan (1) Septic arthritis of knee, right Status: Acute Code(s): M00.9 - PYOGENIC ARTHRITIS, UNSPECIFIED SNOMED Code(s): 746903718 (2) Leukocytosis Status: Acute Code(s): D72.829 - ELEVATED WHITE BLOOD CELL COUNT, UNSPECIFIED SNOMED Code(s): 072348370 Plan: 1patient presenting to the hospital with increasing pain swelling redness to the right knee area in this patient who did have a 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 and almost have 7 surgeries and 2 knee replacement however the last surgery in 2012 high clinical suspicious for right knee septic arthritis 2-await Ortho evaluation for knee aspirate and culture versus sending the patient to the [facility] to be evaluated by her own orthopedics 3-patient has received Rocephin will also advise vancomycin pending final disposition Daughter at the bedside multiple question concern answered We will follow on clinical condition and cultures to further adjust medication if needed Thank you for this consultation we will follow the patient along with you Dictation was produced using [employer] dictation software. please excuse any gram matical, word or spelling errors. Time with Patient: Greater than 30
[2024-08-16] MEDS ORDERED: PANTOPRAZOLE 40 MG TABLET PO SCH (07:30)
[2024-08-16] MEDS ORDERED: SYMBICORT 160-4.5 MCG INHALER INHALATION SCH (08:00)
[2024-08-16] MEDS ORDERED: OXYBUTYNIN XL 5 MG TAB.ER.24 PO SCH (09:00)
[2024-08-16] MEDS ORDERED: ASPIRIN 81 MG PO SCH (09:00)
[2024-08-16] MEDS ORDERED: MULTIVITAMINS, THERA 1 EACH TAB PO SCH (09:00)
[2024-08-16] MEDS ORDERED: LORATADINE 10 MG TAB PO SCH (09:00)
[2024-08-16] MEDS ORDERED: allopurinoL 100 MG TAB PO SCH (09:00)
[2024-08-16] MEDS ORDERED: MONTELUKAST 10 MG TAB PO SCH (09:00)
[2024-08-16] MEDS ORDERED: CALCIUM CARBONATE 500 MG CHEWABLE PO SCH (09:00)
[2024-08-16] MEDS ORDERED: [UNRECOGNIZED DRUG - OTHER] PO SCH (09:00)
[2024-08-16] MEDS ORDERED: ATORVASTATIN 40 MG TAB PO SCH (09:00)
[2024-08-16] MEDS ORDERED: FLUTICASONE NASAL 50MCG/SPRAY 16GM BTL EA NOSTRIL SCH (09:00)
[2024-08-19] MEDS ORDERED: NON FORMULARY DRUG (Alendronate Sodium [Alendronate Sodium] 70 MG Tablet) PO SCH (15:22)
[2024-08-21] MEDS ORDERED: CHOLECALCIFEROL 25 MCG (1000 IU) TABLET PO SCH (09:00)
== END 2024-08-15 17:38 | disposition other institution (70) ==
LOC: EC 10:27 → UNDOADMIN 13:17 → 1SOBS 13:17 → EC 17:38
DX: L03.115 Cellulitis of right lower limb (principal); M00.9 Pyogenic arthritis, unspecified; Z88.4 Allergy status to anesthetic agent; Z88.8 Allergy status to other drugs, medicaments and biological substances; Z87.891 Personal history of nicotine dependence
CPT/HCPCS: 99285; 96374; 96375; 96376; 36415; 94640; 80053; 85652; 83605; 84550; 85025; 86140; 87040; 73562; J0696; J1171 ×2

== ENCOUNTER 2024-12-20 19:42 | Outpatient (CLI) | payer MEDICARE, OTHER ==
--- NOTE | 2025-01-10 23:22 | P.PCN ---
Date of Procedure: 12/20/24 Operative Findings: Polysomnography report Date of service 12/20/2024 History This is a 69-year-old female patient with known history of obstructive sleep apnea. Previous evaluation was done in outside sleep center and the patient was nontolerant to CPAP therapy. The patient continues to snore and she continues to have sleep fragmentation. Her body mass index is 36 and she is using O2 overnight. She is coming in for reevaluation. The patient is known to have advanced COPD with an FEV1 of 60% of predicted. She has chronic hypoxic respiratory failure maintained on O2 at 2 L/min nasal cannula. Also known to have hypertension and hyperlipidemia Physical findings Weight is 203 pounds with a BMI of 36 Technical description The patient was studied using a standard complex polysomnography protocol that included recording of the Lead II EKG, Central, occipital and frontal EEG, right and left outer canthus EOG, submental EMG, right and left anterior tibialis EMG, respiratory airflow by thermocouple and or pressure/flow transducer, respiratory efforts by abdominal and thoracic PVDF belts, oxygen saturation by cable oximetry. Position by observation synchronized the PSG. Equipment used: Follow[employer]. Sleep architecture The total recording duration was 429.0 minutes. The total sleep time was 350.5 minutes. The wake after sleep onset time was 61 minutes. Overall sleep efficiency was calculated to be at 81.7%. The latency to sleep onset was 15.5 minutes. The latency to REM sleep was 78.5 minutes. The sleep architecture was characterized by 3% stage I, 63.6% stage II, 5.1% stage III and a total of 28.2% REM sleep. The total arousal index was 17.6 Respiratory analysis The sleep study showed a total of 61 obstructive events of which 1 was obstructive apnea, 0 was mixed apnea and 61 obstructive hypopneas. The resulting AHI was 9.6. The patient's disease was essentially REM specific and AHI during REM was 26.7. The AHI was even higher and REM sleep while supine with an AHI of 51.4. Oxygenation analysis There was considerable oxygen desaturations with a minimum pulse ox of 68% and the patient spent approximately 421 minutes of the sleep time below pulse ox of 89% and this accounted for 98% of the overall recording duration. Arousal events There was a total of 103 arousals with an index of 70.6. The respiratory arousal index was 0.7 Periodic limb movements The patient encountered a total of 257 periodic limb movement activity with an index of 44. There was an additional 27 periodic limb movement activity that caused arousals with a PLM arousal index of 4.6 Cardiac rates Average heart rate was 74 with a minimum heart rate of 69 and a maximum rate of 79 Assessment Mild obstructive sleep apnea, overall AHI was at 9.6. Nevertheless, disease severity was worse during REM sleep and in a supine body position. AHI during REM was 26 and the AHI during REM while supine was 51. COPD, severe Chronic hypoxic respiratory failure with considerable nocturnal oxygen desaturation during sleep Hypertension Hyperlipidemia Plan Will encourage use of noninvasive positive pressure ventilation either in the form of CPAP or BiPAP to eliminate obstructive respiratory events of nocturnal oxygen saturation during sleep. We discussed with the patient. I do acknowledge that the patient had difficulty in tolerating CPAP therapy in the past. Will do a CPAP/BiPAP titration and reevaluate his tolerability. O2 may be also needed to maintain saturation above 90% along with a noninvasive positive pressure ventilator. If well-tolerated treatment, the patient will be asked to come back to sleep center to undergo a titration. Optimize COPD Weight loss Maintain good sleep hygiene measures Maintain regular sleep schedule Will follow
== END 2024-12-21 06:00 | disposition home or self-care (01) ==
LOC: 3 N SLEEP 19:42
PROVIDERS: ATTEND Internal Medicine Critical Care Medicine
DX: G47.33 Obstructive sleep apnea (adult) (pediatric) (principal); I10 Essential (primary) hypertension; E78.5 Hyperlipidemia, unspecified; J96.11 Chronic respiratory failure with hypoxia; J44.9 Chronic obstructive pulmonary disease, unspecified; Z88.4 Allergy status to anesthetic agent
CPT/HCPCS: 95810

== ENCOUNTER 2025-02-05 19:45 | Outpatient (CLI) | payer MEDICARE, OTHER ==
--- NOTE | 2025-02-19 23:05 | P.PCN ---
Date of Procedure: 02/05/25 Operative Findings: CPAP titration report history This is a 69-year-old female patient with known history of obstructive sleep apnea. Previous evaluation was done in outside sleep center and the patient was nontolerant to CPAP therapy. The patient continues to snore and she continues to have sleep fragmentation. Her body mass index is 36 and she is using O2 overnight. She is coming in for reevaluation. The patient is known to have advanced COPD with an FEV1 of 60% of predicted. She has chronic hypoxic respiratory failure maintained on O2 at 2 L/min nasal cannula. Also known to have hypertension and hyperlipidemia. The patient underwent a polysomnography and the patient was found to have mild obstructive sleep apnea with an AHI of 9.6 with significant nocturnal oxygen desaturations. Based on that, the patient was asked to come into the sleep center to undergo a CPAP titration. Physical findings Weight is 203 pounds with a BMI of 36 Technical description The patient was studied using a standard complex polysomnography protocol that included recording of the Lead II EKG, Central, occipital and frontal EEG, right and left outer canthus EOG, submental EMG, right and left anterior tibialis EMG, respiratory airflow by thermocouple and or pressure/flow transducer, respiratory efforts by abdominal and thoracic PVDF belts, oxygen saturation by cable oximetry. Position by observation synchronized the PSG. Equipment used: [employer]. Stepwise CPAP titration with calculated nasal RESPIRATORY events Sleep architecture Vocal recording duration was 422.5 minutes. The total sleep time was 355.5 minutes. The wake after sleep onset time was 49.5 minutes. The overall sleep efficiency was 84.1%. Latency to sleep onset was 16 minutes and the latency to REM sleep was 65.0 minutes. The sleep architecture was comprised by 5.5% 31, 72.6% stage II, 2.3% stage III total of 90.7% REM sleep. The total arousal index was 12.8 Respiratory analysis The patient was started on CPAP therapy, initially had a CPAP pressure of 5 cm of water and is down to 6 and to be supported. Subsequently, the patient as she continued to have oxygen saturations, was switched to a BiPAP and utilized pressures were 8/4, 9/5, and 10/6 cm of water. O2 was also added at 2 L to maintain saturation above 90%. All sleep stages were encountered. The patient was also studied during REM sleep. While on BiPAP therapy and O2 therapy, no significant desaturation encountered. Cardiac summary Average heart rate was 70 with a minimum heart rate of 64 and a max heart of 75 Periodic limb movements There was a total of 133. The premorbid activity with an index of 22.4. Out of those, only 4. Limb movements resulted in arousals Arousal events The total number of arousal was 76 with an index of 12.8. Respiratory arousal index was 0 Assessment Mild obstructive sleep apnea, overall AHI was at 9.6. Nevertheless, disease severity was worse during REM sleep and in a supine body position. AHI during REM was 26 and the AHI during REM while supine was 51. The patient also had significant nocturnal oxygen desaturations. Noted while on CPAP therapy, the patient continued to have oxygen saturations and the patient did well on BiPAP therapy along with O2. There was a limitation of the oximetry desaturation at the completion of the titration study. COPD, severe Chronic hypoxic respiratory failure with considerable nocturnal oxygen desaturation during sleep Hypertension Hyperlipidemia Plan Will start the patient on BiPAP therapy pressures of 9/5 cm of water along with O2 at 2 L/min We will offer the patient a AirFit F30 I small size fullface mask Optimize COPD Weight loss Maintain good sleep hygiene measures Maintain regular sleep schedule Will follow The patient was seen back in 30 to 90 days while on BiPAP therapy to assess clinical response and compliancy.
== END 2025-02-06 05:45 | disposition home or self-care (01) ==
LOC: 3 N SLEEP 19:45
PROVIDERS: ATTEND Internal Medicine Critical Care Medicine
DX: G47.33 Obstructive sleep apnea (adult) (pediatric) (principal); I10 Essential (primary) hypertension; E78.5 Hyperlipidemia, unspecified; J44.9 Chronic obstructive pulmonary disease, unspecified; J96.11 Chronic respiratory failure with hypoxia; Z99.89 Dependence on other enabling machines and devices; Z88.4 Allergy status to anesthetic agent; Z99.81 Dependence on supplemental oxygen
CPT/HCPCS: 95811